=== PATIENT | female | born 1990 | race Caucasian/White ===

== ENCOUNTER 2020-04-12 20:34 | Emergency (ER) | payer SELFPAY ==
[~2020-04-12] VITALS: Ht 162.6 cm; Wt 77.0 kg
[2020-04-12] MEDS ORDERED: ONDA4TAB5 MT (22:39)
[2020-04-12] MEDS ORDERED: ACETAMINOPHEN 325MG TABLET PO ONE (23:30)
[2020-04-12] MEDS ORDERED: ONDANSETRON 4MG ODT PO ONE (23:30)
[2020-04-12 23:45] VITALS: BP 107/65
== END 2020-04-12 23:54 | disposition home or self-care (01) ==
LOC: ER 20:34
DX: R11.2 Nausea with vomiting, unspecified (principal); R19.7 Diarrhea, unspecified; R50.9 Fever, unspecified; Z20.822 Contact with and (suspected) exposure to COVID-19
CPT/HCPCS: 81025; 82962; 99283; C9803; Q0162; U0003

== ENCOUNTER 2023-02-28 16:56 | Emergency (ER) | payer MEDICAID, OTHER ==
[~2023-02-28] VITALS: Ht 162.6 cm; Wt 80.0 kg
[~2023-02-28 16:56] MED LIST: ONDA4TAB5 MT
[2023-02-28 19:35] VITALS: BP 131/89; PULSE 79; RESP 18; TEMP 98.6; O2SAT 99
== END 2023-02-28 21:27 | disposition left against medical advice (07) ==
LOC: ER 16:56
DX: R10.9 Unspecified abdominal pain (principal); Z53.21 Procedure and treatment not carried out due to patient leaving prior to being seen by health care provider
CPT/HCPCS: 99281